=== PATIENT | female | born 1985 | race Caucasian/White ===

== ENCOUNTER 2017-01-05 17:04 | Emergency (ER) | payer SELFPAY ==
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
--- NOTE | 2017-01-05 19:07 | ED MED RECONCILIATION SUMMARY ---
Patient: EMILY ANG Medication Reconciliation Report [facility] VisitID: [id number] [address] [place] [address] 31y, F Registration Date/Time: 01/05/2017 Weight: 58.9 kg Height/Length: 69 in. BMI: 19.2 ALLERGIES: No Known Drug Allergy The patient's Home Medications are listed below: THE FOLLOWING MEDICATIONS NEED TO BE RECONCILED: Adderall Oral 30 mg, daily The source(s) of the original Home Medication information: patient The following Medications were given to the patient in the Emergency Department: None. The following Medications were prescribed to the patient: None.
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
--- NOTE | 2017-01-05 19:07 | ED MED RECONCILIATION SUMMARY ---
Patient: EMILY ANG Medication Reconciliation Report [facility] VisitID: [id number] [address] [place] [address] 31y, F Registration Date/Time: 01/05/2017 Weight: 58.9 kg Height/Length: 69 in. BMI: 19.2 ALLERGIES: No Known Drug Allergy The patient's Home Medications are listed below: THE FOLLOWING MEDICATIONS NEED TO BE RECONCILED: Adderall Oral 30 mg, daily The source(s) of the original Home Medication information: patient The following Medications were given to the patient in the Emergency Department: None. The following Medications were prescribed to the patient: None.
--- NOTE | 2017-01-05 19:07 | ED MAR SUMMARY ---
..... Medication Administration Record [facility] [address] [place], [place] [id number] Patient: EMILY ANG Visit ID: [id number] 31y, F Weight: 58.9 kg Height/Length: 69 in BMI: 19.2 ALLERGIES: No Known Drug Allergy
--- NOTE | 2017-01-05 19:07 | ED MAR SUMMARY ---
..... Medication Administration Record [facility] [address] [place], [place] [id number] Patient: EMILY ANG Visit ID: [id number] 31y, F Weight: 58.9 kg Height/Length: 69 in BMI: 19.2 ALLERGIES: No Known Drug Allergy
== END 2017-01-05 17:30 | disposition home or self-care (01) ==
LOC: ED SRH 17:04
DX: Y04.8XXA Assault by other bodily force, initial encounter (principal)